=== PATIENT | male | born 1980 | race Asian ===

== ENCOUNTER 2020-03-10 07:05 | Outpatient (CLI) | payer OTHER ==
[2020-03-10 08:27] LABS: CALCIUM 8.7 mg/dL (8.4-11.0); POTASSIUM 3.3 mmol/L (3.5-5.1)
[2020-03-10 08:28] LABS: ALBUMIN 4.1 g/dL (3.4-4.8); BILIRUBIN,DIRECT 0.2 mg/dL (0.0-0.3); CREATININE 0.93 mg/dL (0.55-1.30); TOTAL BILIRUBIN 0.7 mg/dL (0.0-1.0); URIC ACID 6.5 mg/dL (2.4-7.0)
== END 2020-03-10 20:26 | disposition home or self-care (01) ==
LOC: SRD 07:05
PROVIDERS: ATTEND Internal Medicine
DX: R05 Cough (principal)
CPT/HCPCS: 36415; 71046-TC; 80048; 80061; 80076; 83036; 84550-TC